=== PATIENT | female | born 1970 | race Caucasian/White ===

== ENCOUNTER 2019-04-12 12:34 | Outpatient (CLI) | payer OTHER ==
[~2019-04-12 12:34] MED LIST: CIPRO500 MG PO; CLONAZEPAM1 MG PO; FERRO-TIME325 MG PO; GABAPENTIN100 MG PO; PRILOSEC20 MG PO; SINGULAIR10 MG PO; TYLENOL W-CODEI1 TAB PO; TYLENOL-CODEINE1 TAB PO; [UNRECOGNIZED DRUG - OTHER] PO; [UNRECOGNIZED DRUG - OTHER] PO
== END 2019-04-12 12:41 | disposition home or self-care (01) ==
LOC: LAB 12:34
DX: E56.1 Deficiency of vitamin K (principal)